=== PATIENT | male | born 1965 | race Caucasian/White ===

== ENCOUNTER 2022-08-17 10:44 | Emergency (ER) | payer OTHER, MEDICAID ==
[~2022-08-17] VITALS: Ht 172.7 cm; Wt 72.6 kg
[~2022-08-17 10:44] MED LIST: ABI10 PO; ARIP20TA1 PO; BENZ-315 PO; DIVA500T1 PO; DOCU100C16 PO; DOCU100C5 PO; HAL5 PO; IBUP-974 PO; LORA-476 PO; TRAZ-343 PO; [UNRECOGNIZED DRUG - CODE] PO; [UNRECOGNIZED DRUG - CODE] TP
[2022-08-17 10:45] VITALS: BP 140/80
--- NOTE | 2022-08-17 12:05 | NUR ---
RYLIE ALS TO ER BED 5
--- NOTE | 2022-08-17 12:58 | NUR ---
57 y/o male biba from [facility] for increased weakness. Patient has had a recent presctiption change (Bupriorion) and is presenting with increased weakness. Patient denies any pain or discomfort. Patient is at baseline per EMS. Medical History: Mood Disorder, Constipation, Depression, Intellectual Disability NKDA
[2022-08-17 13:04] LABS: APPEARANCE,URINE CLEAR (CLEAR); BILIRUBIN,URINE NEGATIVE (NEGATIVE); BLOOD, URINE NEGATIVE (NEGATIVE); COLOR,URINE YELLOW (YELLOW); LEUKOCYTE ESTERASE ,URINE NEGATIVE (NEGATIVE); NITRITE, URINE NEGATIVE (NEGATIVE); UGLUCOSE NEGATIVE (NEGATIVE)
[2022-08-17 14:04] LABS: BASOPHILS % (AUTO) 0.5 % (0.0-2.0); EOSINOPHILS % (AUTO) 0.5 % (0.0-4.0); HEMATOCRIT 38.2 % (36-52); HEMOGLOBIN 13.2 g/dL (12.0-18.0); LYMPHOCYTES # (AUTO) 1.2 K/uL (2.0-11.5); MEAN CORPUSCULAR HEMOGLOBIN 33 pg (27-31); MEAN CORPUSCULAR HGB CONC 35 g/dL (33-37); MEAN CORPUSCULAR VOLUME 94.4 fL (80-94); MONOCYTES # (AUTO) 0.7 K/uL (0.8-1.0); MONOCYTES % (AUTO) 11.2 % (1.7-9.3); NEUTROPHILS # (AUTO) 4.1 K/uL (1.8-7.7); NEUTROPHILS % (AUTO) 67.8 % (42.2-75.2); PLATELET COUNT (AUTO) 152 K/uL (140-450); RED BLOOD CELL COUNT(AUTO) 4.05 MIL/uL (4.20-6.10); RED CELL DISTRIBUTION WIDTH 15.1 % (11.6-13.7); WHITE BLOOD COUNT (AUTO) 6.1 K/uL (4.8-10.8)
--- NOTE | 2022-08-17 14:36 | NUR ---
Patient was made comfortable. All needs met by staff.
[2022-08-17 14:50] LABS: ALBUMIN 3.5 g/dL (3.4-5.0); ANION GAP 5.9 (8-16); CARBON DIOXIDE 36.2 mmol/L (21-32); CREATININE 0.6 mg/dL (0.6-1.3); POTASSIUM 4.1 mmol/L (3.5-5.1); TOTAL BILIRUBIN 0.3 mg/dL (0.0-1.0)
--- NOTE | 2022-08-17 16:48 | NUR ---
Patient is sleeping on bed, respirations even and unlabored. All needs met by staff.
--- NOTE | 2022-08-17 18:22 | NUR ---
Patient is resting on bed, patient is pending discharge. Waiting on transportation for bean picker.
--- NOTE | 2022-08-17 19:27 | NUR ---
Report given to TAYLOR Snider for transfer of care.
[2022-08-17 19:47] VITALS: BP 120/81
== END 2022-08-17 19:47 ==
LOC: MED 10:44
DX: R53.83 Other fatigue (principal); R53.1 Weakness; F41.9 Anxiety disorder, unspecified; F79 Unspecified intellectual disabilities
CPT/HCPCS: 36415; 80053; 81003; 85025; 99283